=== PATIENT | female | born 1960 ===

== ENCOUNTER 2020-12-12 13:29 | Outpatient (CLI) | payer MEDICAID ==
[~2020-12-12] VITALS: Ht 162.6 cm; Wt 68.9 kg
[2020-12-12 13:45] VITALS: BP 125/77
[2020-12-12] MEDS ORDERED: MULTIVITAMINS1 EAC2 ORAL (13:46)
--- NOTE | 2020-12-12 22:14 | Consultation ---
DATE OF CONSULTATION: 12/12/2020 CHIEF COMPLAINT: Rectal pain, hemorrhoidal pain, abdominal bloating. PAST MEDICAL HISTORY: 1. Colonic polyps. 2. Hemorrhoids. PAST SURGICAL HISTORY: Kidney cyst surgery, breast cyst, fracture. MEDICATIONS: Multivitamin. FAMILY HISTORY: No family history of GI malignancies. SOCIAL HISTORY: The patient occasionally drinks alcohol. Quit tobacco 6 years ago. No IV drug abuse. ALLERGIES: Noted to penicillin and Bactrim. REVIEW OF SYSTEMS: Positive for rectal pain and hemorrhoidal pain. PHYSICAL EXAMINATION: VITAL SIGNS: Temperature 96.3, blood pressure 125/77, pulse rate 77, respirations 20. Height is 5 feet 4 inches, weight is 152. HEENT: Normocephalic, atraumatic. Sclerae anicteric. NECK: Supple. No evidence of obvious lymphadenopathy. CARDIOVASCULAR: Regular rate and rhythm. Plus S1-S2. LUNGS: Clear to auscultation bilaterally. ABDOMEN: Positive bowel sounds. Soft and nontender. No rebound. No guarding. No peritoneal sign. EXTREMITIES: No cyanosis, no clubbing, no edema. ASSESSMENT AND PLAN: This is a 60-year-old female with external hemorrhoidal pain. The patient is currently getting sitz baths and hemorrhoidal treatment with Anusol HC cream. The patient was told to continue doing whatever she is doing and, if she is not better, to see a rectal/colorectal surgeon for hemorrhoidectomy. The patient also complained of some significant bloating. The patient was started on Align. The patient was suggested to take it for 2 months and come back for followup. Fred Patterson M.D. DR: VENESSA JOB#: [id number] CC:
== END 2020-12-12 15:29 | disposition home or self-care (01) ==
LOC: PAN 13:29
DX: K62.89 Other specified diseases of anus and rectum (principal); K64.9 Unspecified hemorrhoids; R14.0 Abdominal distension (gaseous); Z88.0 Allergy status to penicillin; Z88.8 Allergy status to other drugs, medicaments and biological substances; Z86.010 Personal history of colon polyps
CPT/HCPCS: 99203